=== PATIENT | male | born 1990 | race Caucasian/White ===

== ENCOUNTER 2021-04-05 01:16 | Emergency (ER) | payer BC ==
[~2021-04-05] VITALS: Ht 182.9 cm; Wt 113.4 kg
[2021-04-05 01:49] LABS: ABSOLUTE BASOPHILS 0.1 thou/uL (0.0-0.2); ABSOLUTE EOSINOPHILS 0.2 thou/uL (0.0-0.7); ABSOLUTE LYMPHOCYTES 4.1 thou/uL (0.8-5.3); ABSOLUTE MONOCYTES 0.6 thou/uL (0.0-1.2); BASOPHILS 1.1 %; EOSINOPHILS 2.4 %; HEMATOCRIT 45.9 % (42.0-52.0); HEMOGLOBIN 15.8 gm/dL (14.0-18.0); LYMPHOCYTES 40.5 %; MCH 29.2 pg (26.0-34.0); MCHC 34.5 g/dL (28.0-37.0); MCV 84.4 fL (80.0-100.0); MONOCYTES 6.1 %; MPV 7.2 fl. (7.2-11.1); NUCLEATED RBCS 0 /100WBC; PLATELET COUNT* 352 thou/uL (150-400); POLYS 49.9 %; RBC 5.43 mil/uL (4.50-6.00)
[2021-04-05 01:54] LABS: CALCIUM 9.2 mg/dL (8.5-10.1); POTASSIUM 3.4 mmol/L (3.5-5.1)
[2021-04-05 01:59] LABS: TOTAL BILIRUBIN 0.3 mg/dL (<0.1-1.0); TOTAL PROTEIN 8.1 g/dL (6.4-8.2)
[2021-04-05] MEDS ORDERED: ZOFRAN ODT4 MG PO (03:44)
[2021-04-05 03:50] VITALS: BP 153/99
== END 2021-04-05 03:50 | disposition home or self-care (01) ==
LOC: M.ERS 01:16
PROVIDERS: Emergency Medicine
DX: R11.2 Nausea with vomiting, unspecified (principal); F12.90 Cannabis use, unspecified, uncomplicated

== ENCOUNTER 2021-06-18 18:32 | Emergency (ER) | payer BC ==
[~2021-06-18] VITALS: Ht 182.9 cm; Wt 90.7 kg
[~2021-06-18 18:32] MED LIST: ZOFRAN ODT4 MG PO
[2021-06-18 18:36] VITALS: BP 158/88
== END 2021-06-18 20:25 | disposition home or self-care (01) ==
LOC: M.ERS 18:32
DX: S61.412A Laceration without foreign body of left hand, initial encounter (principal); W26.0XXA Contact with knife, initial encounter; Y93.89 Activity, other specified; Y92.89 Other specified places as the place of occurrence of the external cause; Y99.8 Other external cause status